=== PATIENT | male | born 1965 | race Caucasian/White ===

== ENCOUNTER 2018-11-11 11:00 | Inpatient (IN) | payer OTHER ==
[2018-11-11 11:09] VITALS: BMI 18.3
--- NOTE | 2018-11-11 13:09 | HP ---
CIWA Score Nausea/Vomitin-No Nausea/No Vomiting Muscle Tremors: 2 Anxiety: 3 Agitation: 1-Slight > Activity Paroxysmal Sweats: 2 Orientation: 2-Disoriented Date<2 days Tacttile Disturbances: 1-Very Mild Itch/Numbness Auditory Disturbances: 0-None Visual Disturbances: 0-None Headache: 1-Very Mild CIWA-Ar Total Score: 12 - Admission Criteria OAS Guidelines: Admission for Medically Managed Detox: Requires at least one of the followin. CIWA greater than 12 2. Seizures within the past 24 hours 3. Delirium tremens within the past 24 hours 4. Hallucinations within the past 24 hours 5. Acute intervention needed for co occurring medical disorder 6. Acute intervention needed for co occurring psychiatric disorder 7. Severe withdrawal that cannot be handled at a lower level of care (continued vomiting, continued diarrhea, abnormal vital signs) requiring intravenous medication and/or fluids 8. Patient presents the following: CIWA greater than 12 Admission Criteria Met: Admission criteria met Admission [facility] Chief Complaint: " alcohol detox" Allergies/Adverse Reactions: Allergies Allergy/AdvReac Type Severity Reaction Status Date / Time No Known Allergies Allergy Verified 11/11/18 11:43 History of Present Illness: 53 yo male with hx of nicotine, alcohol and cocaine dependence is here seeking detox, reports mandated by parole. Last detox [facility] approx 45 days ago. PMHX : GERD, HIV+, [place] b/l, blind (r). Denies suicidal / homicidal ideation or hx of suicide attempt. Denies hx of seizures or blackouts. Exam Limitations: Other ([place]) - Ebola screening Have you traveled outside of the country in the last 21 days: No Have you had contact with anyone from an Ebola affected area: No Have you been sick,other than usual withdrawal symptoms: No - Review of Systems Constitutional: Chills, Changes in sleep, Weakness (fatigue), Unintentional Wgt. Loss (2 -3 lb) EENT: reports: Hearing Loss (b/l), Other (blind right eye) Respiratory: reports: SOB with Exertion Cardiac: reports: No Symptoms Reported GI: reports: Constipated (last BM yesterday), Poor Fluid Intake, Indigestion : reports: Other (hesitancy) Musculoskeletal: reports: Muscle Weakness Integumentary: reports: Other (abcess on the left middle finger) Neuro: reports: See HPI, Weakness Endocrine: reports: Increased Thirst Hematology: reports: See HPI Psychiatric: reports: Orientated x3, Anxious Other Systems: Reviewed and Negative Patient History - Patient Medical History Hx Anemia: No Hx Asthma: No Hx Chronic Obstructive Pulmonary Disease (COPD): No Hx Cancer: No Hx Cardiac Disorders: No Hx Congestive Heart Failure: No Hx Hypertension: No Hx Hypercholesterolemia: No Hx Pacemaker: No HX Cerebrovascular Accident: No Hx Seizures: No Hx Dementia: No Hx Diabetes: No Hx Gastrointestinal Disorders: Yes (acid reflux) Hx Liver Disease: Yes (Hep A positive ag) Hx Genitourinary Disorders: No Hx Sexually Transmitted Disorders: No Hx Renal Disease (ESRD): No Hx Thyroid Disease: No Hx Human Immunodeficiency Virus (HIV): Yes (needs medications names : from [facility] , ) Hx Hepatitis C: No Hx Depression: Yes Hx Suicide Attempt: No Hx Bipolar Disorder: No Hx Schizophrenia: No - Patient Surgical History Past Surgical History: No Hx Neurologic Surgery: No Hx Cataract Extraction: No Hx Cardiac Surgery: No Hx Lung Surgery: No Hx Breast Surgery: No Hx Breast Biopsy: No Hx Abdominal Surgery: No Hx Appendectomy: No Hx Cholecystectomy: No Hx Genitourinary Surgery: No Hx Section: No Hx Orthopedic Surgery: No Anesthesia Reaction: No - PPD History Previous Implant?: Yes Documented Results: Negative w/proof Implanted On Prior [facility] Admission?: Yes Date: 04/30/14 Results: 0 mm PPD to be Administered?: Yes - Smoking Cessation Smoking history: Current every day smoker Have you smoked in the past 12 months: Yes Aproximately how many cigarettes per day: 3 Hx Chewing Tobacco Use: No Initiated information on smoking cessation: Yes 'Breaking Loose' booklet given: 11/11/18 - Substance & Tx. History Hx Alcohol Use: Yes Hx Substance Use: Yes Substance Use Type: Alcohol, Cocaine Hx Substance Use Treatment: Yes (Detox [facility] approx 45 days ago ) - Substances Abused Heroin Route: Inhalation Frequency: Daily Amount used: 2-3 bags Age of first use: 49 Date of Last Use: 11/08/18 Cocaine Route: Inhalation Frequency: Daily Amount used: $30 Age of first use: 37 Date of Last Use: 11/10/18 Alcohol-beer Route: Oral Frequency: Daily Amount used: 1-6 pk. Age of first use: 31 Date of Last Use: 11/10/18 Family Disease History - Family Disease History Family History: Denies Admission Physical Exam BHS - Vital Signs Vital Signs: Vital Signs - 24 hr 11/11/18 11:04 Temperature 98 F Pulse Rate 98 H Respiratory 17 Rate Blood Pressure 121/78 - Physical General Appearance: Yes: Appropriately Dressed, Thin, Sweating, Anxious HEENTM: Yes: Normocephalic, Normal Voice, Pharynx Normal, Tm's normal, Other ( right corneal haze, dry mucous membranes) Respiratory: Yes: Within Normal Limits Neck: Yes: Within Normal Limits Breast: Yes: Breast Exam Deferred Cardiology: Yes: Regular Rhythm, Regular Rate Abdominal: Yes: Normal Bowel Sounds, Non Tender, Flat, Soft, Other (+ flactulance) Genitourinary: Yes: Within Normal Limits Back: Yes: Normal Inspection Musculoskeletal: Yes: full range of Motion, Gait Steady, Pelvis Stable Extremities: Yes: Normal Capillary Refill, Normal Inspection, Normal Range of Motion, Non-Tender Neurological: Yes: manager shipping II-XII NML intact, Fully Oriented, Alert, Motor Strength 5/5, Normal Mood/Affect, Depressed Affect Integumentary: Yes: Normal Color, Dry, Warm, Other (left middle finger abcess) Lymphatic: Yes: Within Normal Limits - Diagnostic (1) [place] (hard of hearing) Current Visit: Yes Status: Chronic Qualifiers: Hearing loss type: unspecified Laterality: bilateral Qualified Code(s): H91.93 - Unspecified hearing loss, bilateral (2) BPH (benign prostatic hyperplasia) Current Visit: Yes Status: Chronic Qualifiers: Lower urinary tract symptom presence: unspecified whether lower urinary tract symptoms present Qualified Code(s): N40.0 - Benign prostatic hyperplasia without lower urinary tract symptoms (3) Cocaine dependence Current Visit: Yes Status: Acute Qualifiers: Substance use status: uncomplicated Qualified Code(s): F14.20 - Cocaine dependence, uncomplicated (4) Opioid dependence Current Visit: Yes Status: Acute Qualifiers: Substance use status: uncomplicated Qualified Code(s): F11.20 - Opioid dependence, uncomplicated (5) Blindness of right eye Current Visit: Yes Status: Chronic (6) Cachexia Current Visit: Yes Status: Chronic (7) Cataract, right eye Current Visit: Yes Status: Chronic (8) Human immunodeficiency virus (HIV) infection Current Visit: Yes Status: Chronic Qualifiers: HIV symptom status: unspecified Qualified Code(s): B20 - Human immunodeficiency virus [HIV] disease (9) Nicotine dependence Current Visit: Yes Status: Chronic Qualifiers: Nicotine product type: cigarettes Cleared for Admission [facility] - Detox or Rehab [facility] Level of Care: Medically Managed Detox Regimen/Protocol: Librium S Breath Alcohol Content Breath Alcohol Content: 0 Urine Drug Screen - Results Drug Screen Negative: Yes Urine Drug Screen Results: JUANA-Cocaine Inpatient Rehab Admission - Rehab Decision to Admit Inpatient rehab admission?: No
[2018-11-11] MEDS ORDERED: ACETAMINOPHEN 325 MG TABLET (FP) PO PRN (13:27)
[2018-11-11] MEDS ORDERED: P-EPHED 60MG/TRIPROLIDI 2.5MG TABLET PO PRN (13:33)
[2018-11-11] MEDS ORDERED: MENTHOL/PHENOL 1 EACH UD MM PRN (13:33)
[2018-11-11] MEDS ORDERED: NICOTINE POLACRILEX 2 MG GUM BUC PRN (13:33)
[2018-11-11] MEDS ORDERED: IBUPROFEN 400 MG TABLET (FP) PO PRN (13:33)
[2018-11-11] MEDS ORDERED: MAGNESIUM HYDROX 2400MG/30ML ORAL SUSPENSION 30 ML CUP PO PRN (13:33)
[2018-11-11] MEDS ORDERED: guaiFENesin/D-METHORPHAN HB 10 ML UNIT-DOSE CUPS PO PRN (13:33)
[2018-11-11] MEDS ORDERED: MAGNESIUM CITRATE 300 ML BOTTLE PO PRN (13:33)
[2018-11-11] MEDS ORDERED: MAG HYDROX/AL HYDROX/SIMETH 30 ML UNIT-DOSE CUP PO PRN (13:33)
[2018-11-11] MEDS ORDERED: LOPERAMIDE HCL 2 MG CAPSULE PO PRN (13:33)
[2018-11-11] MEDS ORDERED: chlordiazePOXIDE HCL 25 MG CAPSULE PO PRN (13:33)
[2018-11-11] MEDS ORDERED: hydrOXYzine PAMOATE 25 MG CAPSULE (FP) PO PRN (13:33)
[2018-11-11] MEDS: chlordiazePOXIDE HCL 25 MG CAPSULE PO SCH ×2 (17:27→22:23)
[2018-11-11] MEDS ORDERED: MELATONIN 5 MG TABLETS PO PRN (22:00)
[2018-11-11] MEDS: AMOX TR/POT CLAV 875MG/125MG TABLETS (FP) PO SCH (22:23)
[2018-11-11] MEDS: TAMSULOSIN HCL 0.4 MG CAP PO SCH (22:23)
[2018-11-11 23:09] LABS: URINE APPEARANCE CLOUDY; URINE BILIRUBIN NEGATIVE (<2.0 mg/dL); URINE COLOR YELLOW; URINE GLUCOSE (UA) 3+ (NEGATIVE); URINE KETONE NEGATIVE (NEGATIVE); URINE LEUK ESTERASE NEGATIVE (NEGATIVE); URINE NITRITE NEGATIVE (NEGATIVE); URINE PROTEIN NEGATIVE (NEGATIVE); URINE UROBILINOGEN NEGATIVE mg/dL (0.2-1.0)
[2018-11-12] MEDS: chlordiazePOXIDE HCL 25 MG CAPSULE PO SCH ×4 (05:19→22:17)
[2018-11-12] MEDS ORDERED: RITONAVIR 100 MG TABLET PO SCH (10:00)
[2018-11-12] MEDS ORDERED: NICOTINE 14 MG/24 HOURS TOPICAL PATCH TD SCH (10:00)
[2018-11-12] MEDS ORDERED: BRIMONIDINE TARTRATE 0.2% OPHTHALMIC 5 ML BOTTLE OS SCH (10:00)
[2018-11-12] MEDS ORDERED: DARUNAVIR ETHANOLATE 800 MG TAB PO SCH (10:00)
[2018-11-12] MEDS ORDERED: CYANOCOBALAMIN (VITAMIN B-12) 100 MCG TABLET PO SCH (10:00)
[2018-11-12] MEDS ORDERED: PRENATAL VITAMINS W/ FOLIC ACID TABLET (FP) PO SCH (10:00)
[2018-11-12] MEDS ORDERED: SULFAMETHOXAZOLE/TRIMETHOPRIM 800MG/160MG D.S. TABLET PO SCH (10:00)
[2018-11-12] MEDS: AMOX TR/POT CLAV 875MG/125MG TABLETS (FP) PO SCH ×2 (10:20→22:17)
[2018-11-12 11:26] LABS: HEMATOCRIT 38.7 % (35.4-49); MCH 32.3 pg (25.7-33.7); MCHC 33.6 g/dl (32.0-35.9); MEAN CELL VOLUME 96.2 fl (80-96); MEAN PLT VOLUME 8.5 fl (7.5-11.1); PLATELET COUNT 270 K/MM3 (134-434); RBC 4.02 M/mm3 (4.00-5.60); WHITE BLOOD COUNT 4.5 K/mm3 (4.0-10.0)
[2018-11-12 12:19] LABS: ALBUMIN 3.9 g/dl (3.4-5.0); ALK PHOS 78 U/L (45-117); ANION GAP 6 MMOL/L (8-16); BILIRUBIN,TOTAL 0.4 mg/dL (0.2-1); BLOOD UREA NITROGEN 12 mg/dL (7-18); CALCIUM 8.8 mg/dL (8.5-10.1); CHLORIDE 107 mmol/L (98-107); CO2 25 mmol/L (21-32); CREATININE 0.9 mg/dL (0.55-1.3); GLUCOSE,RANDOM 146 mg/dL (74-106); POTASSIUM 4.4 mmol/L (3.5-5.1); SGOT/AST 29 U/L (15-37); SGPT/ALT 33 U/L (13-61); SODIUM 138 mmol/L (136-145); TOT PROT 7.3 g/dl (6.4-8.2)
--- NOTE | 2018-11-12 12:42 | EKG ---
Test Reason : Blood Pressure : / mmHG Vent. Rate : 080 BPM Atrial Rate : 080 BPM P-R Int : 138 ms QRS Dur : 090 ms QT Int : 368 ms P-R-T Axes : 087 089 082 degrees QTc Int : 424 ms NORMAL SINUS RHYTHM NORMAL ECG NO PREVIOUS ECGS AVAILABLE Confirmed by MARISSA GUERRERO, ELENA ([id number]) on 11/12/2018 12:42:42 PM Referred By: DR BEE Confirmed By:ELENA ANN MD
--- NOTE | 2018-11-12 17:55 | PN ---
S CIWA - CIWA Score Nausea/Vomitin-No Nausea/No Vomiting Muscle Tremors: 3 Anxiety: 3 Agitation: 1-Slight > Activity Paroxysmal Sweats: 3 Orientation: 0-Oriented Tacttile Disturbances: 2-Mild Itch/Numbness/Burn Auditory Disturbances: 0-None Visual Disturbances: 0-None Headache: 0-None Present CIWA-Ar Total Score: 12 BHS Progress Note (SOAP) Subjective: Anxious, Tremors, Sweating. Objective: PATIENT A & O X 3, OBSERVED AMBULATING ON UNIT. IN NO ACUTE DISTRESS. ABSCESS ON MIDDLE FINGER OF RIGHT HAND NOTED. NO DISCHARGE NOTED FROM ABSCESS. 11/12/18 17:55 Vital Signs Temperature 98.3 F 11/12/18 17:48 Pulse Rate 105 H 11/12/18 17:48 Respiratory Rate 18 11/12/18 17:48 Blood Pressure 112/71 11/12/18 17:48 O2 Sat by Pulse Oximetry (%) Laboratory Tests 11/11/18 11/12/18 11/12/18 18:49 06:00 06:00 WBC 4.5 RBC 4.02 Hgb 13.0 Hct 38.7 MCV 96.2 H MCH 32.3 MCHC 33.6 RDW 13.0 Plt Count 270 MPV 8.5 Sodium 138 Potassium 4.4 Chloride 107 Carbon Dioxide 25 Anion Gap 6 L BUN 12 Creatinine 0.9 Creat Clearance w eGFR > 60 Random Glucose 146 H Calcium 8.8 Total Bilirubin 0.4 AST 29 ALT 33 Alkaline Phosphatase 78 Total Protein 7.3 Albumin 3.9 Urine Color Yellow Urine Appearance Cloudy Urine pH 7.0 Ur Specific [place] 1.022 Urine Protein Negative Urine Glucose (UA) 3+ H Urine Ketones Negative Urine Blood Negative Urine Nitrite Negative Urine Bilirubin Negative Urine Urobilinogen Negative Ur Leukocyte Esterase Negative RPR Titer 11/12/18 06:00 WBC RBC Hgb Hct MCV MCH MCHC RDW Plt Count MPV Sodium Potassium Chloride Carbon Dioxide Anion Gap BUN Creatinine Creat Clearance w eGFR Random Glucose Calcium Total Bilirubin AST ALT Alkaline Phosphatase Total Protein Albumin Urine Color Urine Appearance Urine pH Ur Specific [place] Urine Protein Urine Glucose (UA) Urine Ketones Urine Blood Urine Nitrite Urine Bilirubin Urine Urobilinogen Ur Leukocyte Esterase RPR Titer Nonreactive LABS NOTED. 11/12/18 17:59 Assessment: 11/12/18 17:56 WITHDRAWAL SYMPTOMS. HYPERGLYCEMIA. GLUCOSURIA. 11/12/18 17:57 Plan: CONTINUE DETOX. INCREASE DAILY PO FLUID INTAKE. BGM ACBK FOR ELEVATED ADMISSION GLUCOSE AND FOR ELEVATED ADMISSION UA LEVELS.
[2018-11-12] MEDS: TAMSULOSIN HCL 0.4 MG CAP PO SCH (22:18)
[2018-11-13 06:21] VITALS: BP 120/78; PULSE 99; TEMP 97.1
[2018-11-13] MEDS: chlordiazePOXIDE HCL 25 MG CAPSULE PO SCH (06:30)
--- NOTE | 2018-11-13 09:34 | PN ---
[facility] Progress Note Note: AT TIME OF ARRIVAL OF VRT MECHANIC ON DETOX UNIT. PATIENT APPEARED AGITATED AND WAS OBSERVED BEING VERBALLY ABUSIVE AND THREATENING TO DETOX UNIT STAFF. PATIENT VERY SHORTLY LEFT DETOX UNIT AGAINST MEDICAL ADVICE. SEE FOLLOWING [facility] DETOX DISCHARGE SUMMARY. Shay SCHWAB NP
--- NOTE | 2018-11-13 09:36 | DS ---
[facility] Detox Discharge Summary Admission Date: 11/11/18 Discharge Date: 11/13/18 - History Present History: Cocaine Dependence, Opioid Dependence Additional Comments: AT TIME IN WHICH [employer] CONTR[employer] SPECIALIST ARRIVED ON DETOX UNIT, PATIENT APPEARED AGITATED AND WAS HEARD PRESENTING VERBALLY ABUSIVE AND THREATENING LANGUAGE TOWARD DETOX UNIT STAFF. DESPITE EFFORTS BY [employer] SPECIALIST AND BY DETOX UNIT NURSING STAFF TO AMELIORATE SITUATION AND TO ADDRESS PATIENT'S NEEDS/CONCERNS, PATIENT STILL ELECTS TO LEAVE DETOX UNIT AGAINST MEDICAL ADVICE. PATIENT WOULD NOT ALLOW [employer] CONTR[employer] SPECIALIST TO MEDICALLY ASSESS HIM OR SPEAK TO HIM PRIOR TO LEAVING DETOX UNIT, STATING "I JUST WANT TO LEAVE THIS PLACE." ALL HOME MEDICATIONS THAT PATIENT BROUGHT WITH HIM AT TIME OF ADMISSION TO DETOX UNIT, INCLUDING ANTIBIOTIC (AUGMENTIN) FOR ABSCESS OF HAND, RETURNED TO PATIENT AT TIME IN WHICH HE WAS LEAVING DETOX UNIT. Pertinent Past History: History of Hep A, Acid Reflux, History of Depression, Hard of Hearing ([place]), Nicotine Dependence, H.I.V., Glucosuria, Blind In Right Eye, Cachexia, History of B.P.H. - Physical Exam Results Vital Signs: Vital Signs Temperature 97.1 F L 11/13/18 06:20 Pulse Rate 99 H 11/13/18 06:20 Respiratory Rate 18 11/13/18 06:20 Blood Pressure 120/78 11/13/18 06:20 O2 Sat by Pulse Oximetry (%) Pertinent Admission Physical Exam Findings: WITHDRAWAL SYMPTOMS. Laboratory Tests 11/11/18 11/12/18 11/12/18 18:49 06:00 06:00 WBC 4.5 RBC 4.02 Hgb 13.0 Hct 38.7 MCV 96.2 H MCH 32.3 MCHC 33.6 RDW 13.0 Plt Count 270 MPV 8.5 Sodium 138 Potassium 4.4 Chloride 107 Carbon Dioxide 25 Anion Gap 6 L BUN 12 Creatinine 0.9 Creat Clearance w eGFR > 60 POC Glucometer Random Glucose 146 H Calcium 8.8 Total Bilirubin 0.4 AST 29 ALT 33 Alkaline Phosphatase 78 Total Protein 7.3 Albumin 3.9 Urine Color Yellow Urine Appearance Cloudy Urine pH 7.0 Ur Specific [place] 1.022 Urine Protein Negative Urine Glucose (UA) 3+ H Urine Ketones Negative Urine Blood Negative Urine Nitrite Negative Urine Bilirubin Negative Urine Urobilinogen Negative Ur Leukocyte Esterase Negative RPR Titer 11/12/18 11/13/18 06:00 06:26 WBC RBC Hgb Hct MCV MCH MCHC RDW Plt Count MPV Sodium Potassium Chloride Carbon Dioxide Anion Gap BUN Creatinine Creat Clearance w eGFR POC Glucometer 103 Random Glucose Calcium Total Bilirubin AST ALT Alkaline Phosphatase Total Protein Albumin Urine Color Urine Appearance Urine pH Ur Specific [place] Urine Protein Urine Glucose (UA) Urine Ketones Urine Blood Urine Nitrite Urine Bilirubin Urine Urobilinogen Ur Leukocyte Esterase RPR Titer Nonreactive LABS NOTED. - Treatment Hospital Course: Detoxed Safely - Medication Discharge Medications: Ambulatory Orders Acetaminophen [Tylenol -] 650 mg PO Q8H PRN 11/11/18 Amox-Tr/K Cl [Augmentin - 875Mg Tablet] 1 tab PO BID 11/11/18 Brimonidine Tartrate [Alphagan 0.2% -] 1 drop OP DAILY 11/11/18 Cyanocobalamin [Vitamin B12 -] 100 mcg PO DAILY 11/11/18 Darunavir Ethanolate [Prezista -] 800 mg PO DAILY 11/11/18 Ritonavir [Norvir -] 100 mg PO DAILY 11/11/18 Sulfamethoxazole/Trimethoprim [Bactrim Ds -] 1 tab PO DAILY 11/11/18 Tamsulosin HCl [Flomax] 0.4 mg PO HS 11/11/18 - Diagnosis (1) Cocaine dependence Current Visit: Yes Status: Acute Qualifiers: Substance use status: uncomplicated Qualified Code(s): F14.20 - Cocaine dependence, uncomplicated (2) Opioid dependence Current Visit: Yes Status: Acute Qualifiers: Substance use status: uncomplicated Qualified Code(s): F11.20 - Opioid dependence, uncomplicated (3) BPH (benign prostatic hyperplasia) Current Visit: Yes Status: Chronic Qualifiers: Lower urinary tract symptom presence: unspecified whether lower urinary tract symptoms present Qualified Code(s): N40.0 - Benign prostatic hyperplasia without lower urinary tract symptoms (4) Blindness of right eye Current Visit: Yes Status: Chronic (5) Cachexia Current Visit: Yes Status: Chronic (6) Cataract, right eye Current Visit: Yes Status: Chronic Qualifiers: Cataract type: unspecified Qualified Code(s): H26.9 - Unspecified cataract (7) [place] (hard of hearing) Current Visit: Yes Status: Chronic Qualifiers: Hearing loss type: unspecified Laterality: bilateral Qualified Code(s): H91.93 - Unspecified hearing loss, bilateral (8) Human immunodeficiency virus (HIV) infection Current Visit: Yes Status: Chronic Qualifiers: HIV symptom status: unspecified Qualified Code(s): B20 - Human immunodeficiency virus [HIV] disease (9) Nicotine dependence Current Visit: Yes Status: Chronic Qualifiers: Nicotine product type: cigarettes Substance use status: uncomplicated Qualified Code(s): F17.210 - Nicotine dependence, cigarettes, uncomplicated - AMA Did Patient Leave Against Medical Advice: Yes (PATIENT DID NOT WISH TO REMAIN TO COMPLETE DETOX REGIMEN.)
[2018-11-13] MEDS ORDERED: chlordiazePOXIDE 5 MG CAPSULE PO SCH (17:00)
[2018-11-14] MEDS ORDERED: chlordiazePOXIDE HCL 10 MG CAPSULE PO SCH (17:00)
== END 2018-11-13 08:51 | disposition left against medical advice (07) | DRG 770 ==
LOC: YASAS 11:00 → Y3N 14:18
PROVIDERS: ADMIT Surgery; ATTEND Surgery
PROC: HZ2ZZZZ Detoxification Services for Substance Abuse Treatment (ICD-10-PCS; principal; 2018-11-11)
DX: F11.23 Opioid dependence with withdrawal (principal); F14.20 Cocaine dependence, uncomplicated; F17.210 Nicotine dependence, cigarettes, uncomplicated; Z21 Asymptomatic human immunodeficiency virus [HIV] infection status; N40.0 Benign prostatic hyperplasia without lower urinary tract symptoms; R64 Cachexia; H54.40 Blindness, one eye, unspecified eye; H26.9 Unspecified cataract; H91.93 Unspecified hearing loss, bilateral; R73.9 Hyperglycemia, unspecified; R81 Glycosuria; K21.9 Gastro-esophageal reflux disease without esophagitis
CPT/HCPCS: 36415; 80053; 81003; 82962; 85027; 86593; 93005; 93010

== ENCOUNTER 2020-04-02 16:46 | Inpatient (IN) | payer OTHER ==
[2020-04-02 18:20] VITALS: BMI 23.3
--- NOTE | 2020-04-02 19:05 | HP ---
COWS - Scale Resting Pulse: 0= [place] 80 or Below Sweatin= No chills or Flushing Restless Observation: 0= Sits Still Pupil Size: 0= Normal to Room Light Bone or Joint Aches: 0= None Runny Nose/ Eye Tearin= None GI Upset > 30mins: 0= None Tremor Observation: 0= None Yawning Observation: 0= None Anxiety or Irritability: 0= None Goose Flesh Skin: 0=Smooth Skin COWS Score: 0 CIWA Score - Admission Criteria OASAS Guidelines: Admission for Medically Managed Detox: Requires at least one of the followin. CIWA greater than 12 2. Seizures within the past 24 hours 3. Delirium tremens within the past 24 hours 4. Hallucinations within the past 24 hours 5. Acute intervention needed for co occurring medical disorder 6. Acute intervention needed for co occurring psychiatric disorder 7. Severe withdrawal that cannot be handled at a lower level of care (continued vomiting, continued diarrhea, abnormal vital signs) requiring intravenous medication and/or fluids 8. Admitting History and Physical - Past Medical History Psych: Yes: Anxiety, Depression (Taking risperidone 4mg daily, Zoloft 10[facility] daily from [facility] the [place]) - Smoking History Smoking history: Current every day smoker Have you smoked in the past 12 months: Yes Aproximately how many cigarettes per day: 3 - Alcohol/Substance Use Hx Alcohol Use: Yes Admission [facility] Allergies/Adverse Reactions: Allergies Allergy/AdvReac Type Severity Reaction Status Date / Time No Known Allergies Allergy Verified 11/11/18 11:43 Exam Limitations: No Limitations - Review of Systems Constitutional: No Symptoms Reported EENT: reports: No Symptoms Reported, Difficulty Swallowing, Other (right eye blindness, RECEIVING TREATMENT FOR GLAUCOMA.) Respiratory: reports: No Symptoms reported Cardiac: reports: No Symptoms Reported GI: reports: No Symptoms Reported : reports: No Symptoms Reported, Other (BPH) Musculoskeletal: reports: No Symptoms Reported Integumentary: reports: No Symptoms Reported Neuro: reports: No Symptoms reported Endocrine: reports: No Symptoms Reported Hematology: reports: No Symptoms Reported Psychiatric: reports: No Sypmtoms Reported Other Systems: Reviewed and Negative Patient History - Patient Medical History Hx Anemia: No Hx Asthma: No Hx Chronic Obstructive Pulmonary Disease (COPD): No Hx Cancer: No Hx Cardiac Disorders: No Hx Congestive Heart Failure: No Hx Hypercholesterolemia: No Hx Pacemaker: No HX Cerebrovascular Accident: No Hx Seizures: No Hx Dementia: No Hx Diabetes: No Hx Gastrointestinal Disorders: Yes (acid reflux) Hx Liver Disease: Yes (Hep A positive ag) Hx Genitourinary Disorders: No Hx Sexually Transmitted Disorders: No Hx Renal Disease (ESRD): No Hx Thyroid Disease: No Hx Human Immunodeficiency Virus (HIV): Yes (needs medications names : from [facility] , ) Hx Hepatitis C: No Hx Depression: Yes (taking risperidone 4mg daily and zoloft 10mg daily) Hx Suicide Attempt: No Hx Bipolar Disorder: No Hx Schizophrenia: No - Patient Surgical History Past Surgical History: Yes Hx Neurologic Surgery: No Hx Cataract Extraction: No Hx Cardiac Surgery: No Hx Lung Surgery: No Hx Breast Surgery: No Hx Breast Biopsy: No Hx Abdominal Surgery: No Hx Appendectomy: No Hx Cholecystectomy: No Hx Genitourinary Surgery: No Hx Section: No Hx Orthopedic Surgery: No Other Surgical History: SURGERY FOLLOWING RETINAL DETACHMENT Anesthesia Reaction: No - PPD History Documented Results: Negative w/proof Date: 11/13/18 (repeat today) Results: 0 mm PPD to be Administered?: Yes - Smoking Cessation Smoking history: Current every day smoker Have you smoked in the past 12 months: Yes Aproximately how many cigarettes per day: 3 Hx Chewing Tobacco Use: No Initiated information on smoking cessation: Yes 'Breaking Loose' booklet given: 04/01/20 - Substance & Tx. History Hx Alcohol Use: No Hx Substance Use: Yes (chela) Substance Use Type: Heroin (takes 3 bags/ day, first dose was this year, last dose today-afternoon) - Substances abused Heroin Substance route: Injection Amount used: 3 BAGS/DAY Age of first use: 54 Admission Physical Exam BHS - Vital Signs Vital Signs: Vital Signs - 24 hr 04/02/20 16:46 Temperature 97.4 F L Pulse Rate 68 Respiratory 16 Rate Blood Pressure 129/78 - Physical General Appearance: Yes: Within Normal Limits. No: Nourished (very thin and cachectic) HEENTM: Yes: Within Normal Limits, Hearing grossly Normal, Normocephalic, Normal Voice, Other (Rt eye corneal clouding.) Respiratory: Yes: Within Normal Limits, Chest Non-Tender, Lungs Clear, Normal Breath Sounds Neck: Yes: Within Normal Limits, No masses,lesions,Nodules, Trachea in good position Cardiology: Yes: Within Normal Limits, Regular Rhythm, Regular Rate, S1, S2 Abdominal: Yes: Within Normal Limits, Normal Bowel Sounds, Non Tender, Flat, Soft Genitourinary: Yes: Within Normal Limits, Other (BPH) Breathalyzer - Breathalyzer Breathalyzer: 0 Urine Drug Screen - Test Device Lot number: [id number] Expiration date: 05/28/21 - Control Is test valid?: Yes - Results Drug screen NEGATIVE: No Urine drug screen results: THC-Marijuana, FEN-Fentanyl, MOP-Opiates Inpatient Rehab Admission - Rehab Decision to Admit Inpatient rehab admission?: No
[2020-04-02] MEDS ORDERED: ACETAMINOPHEN 325 MG TABLET (FP) PO PRN ×2 (19:28)
[2020-04-02] MEDS ORDERED: IBUPROFEN 400 MG TABLET (FP) PO PRN (19:28)
[2020-04-02] MEDS ORDERED: METHOCARBAMOL 500 MG TABLET PO PRN (19:28)
[2020-04-02] MEDS ORDERED: MAGNESIUM CITRATE 300 ML BOTTLE PO PRN (19:28)
[2020-04-02] MEDS ORDERED: MENTHOL/PHENOL 1 EACH UD MM PRN (19:28)
[2020-04-02] MEDS ORDERED: ONDANSETRON *ODT* 4 MG TABLET SL ONE (19:28)
[2020-04-02] MEDS ORDERED: MAGNESIUM HYDROX 2400MG/30ML ORAL SUSPENSION 30 ML CUP PO PRN (19:28)
[2020-04-02] MEDS ORDERED: BISMUTH SUBSALICYLATE 524 MG/30 ML UD PO PRN (19:28)
[2020-04-02] MEDS ORDERED: NICOTINE POLACRILEX 2 MG GUM BUC PRN (19:28)
[2020-04-02] MEDS ORDERED: MAG HYDROX/AL HYDROX/SIMETH 30 ML UNIT-DOSE CUP PO PRN (19:28)
[2020-04-02] MEDS ORDERED: TUBERCULIN PPD 5 TU/0.1ML SYRINGE (IN PATIENT USE ONLY) ID ONE (19:29)
[2020-04-02] MEDS ORDERED: METHADONE HCL 10 MG TABLET (FOR DETOX USE ONLY) PO ONE (19:30)
[2020-04-02] MEDS ORDERED: cloNIDine HCL 0.1 MG TABLET PO PRN (19:30)
--- NOTE | 2020-04-02 21:10 | PN ---
S Progress Note Note: Patient states that he is not HIV+ and is not on HIV meds. Patient declines HIV testing.
[2020-04-02] MEDS ORDERED: BRIMONIDINE TARTRATE 0.2% OPHTHALMIC 5 ML BOTTLE OU SCH (22:00)
[2020-04-02] MEDS: MELATONIN 5 MG TABLETS PO SCH (22:11)
[2020-04-02] MEDS: PRENATAL VITAMINS W/ FOLIC ACID TABLET (FP) PO SCH (22:16)
[2020-04-02] MEDS: THIAMINE HCL 100 MG TABLET (FP) PO SCH (22:16)
[2020-04-02] MEDS: DOCUSATE SODIUM 100 MG CAPSULE (FP) PO SCH (22:16)
[2020-04-02] MEDS: hydrOXYzine PAMOATE 25 MG CAPSULE (FP) PO SCH (22:16)
[2020-04-02] MEDS: TAMSULOSIN HCL 0.4 MG CAP PO SCH (22:16)
[2020-04-02] MEDS: NICOTINE 7 MG/24 HOURS TOPICAL PATCH TD SCH (22:19)
[2020-04-02] MEDS: BRIMONIDINE TARTRATE 0.2% OPHTHALMIC 5 ML BOTTLE OS SCH (23:22)
[2020-04-03] MEDS: BRIMONIDINE TARTRATE 0.2% OPHTHALMIC 5 ML BOTTLE OS SCH ×3 (07:15→22:28)
[2020-04-03] MEDS: hydrOXYzine PAMOATE 25 MG CAPSULE (FP) PO SCH ×5 (07:15→22:25)
--- NOTE | 2020-04-03 08:22 | PN ---
Teaching Attending Note Name of Resident: Yesenia Day ATTENDING PHYSICIAN STATEMENT I saw and evaluated the patient. I reviewed the resident's note and discussed the case with the resident. I agree with the resident's findings and plan as documented. SUBJECTIVE: OBJECTIVE: ASSESSMENT AND PLAN:
[2020-04-03] MEDS ORDERED: METHADONE HCL 10 MG TABLET (FOR DETOX USE ONLY) ONE (09:37)
[2020-04-03] MEDS ORDERED: METHADONE HCL 5 MG TABLET (FOR DETOX USE ONLY) ONE (09:38)
[2020-04-03] MEDS ORDERED: TIMOLOL 0.5% OPHTHALMIC SOL 5 ML BOTTLE OD SCH (10:00)
[2020-04-03] MEDS ORDERED: METHADONE (DETOX) 20 MG, METHADONE (DETOX) 5 MG PO ONE (10:00)
[2020-04-03] MEDS: DOCUSATE SODIUM 100 MG CAPSULE (FP) PO SCH ×2 (10:28→22:25)
[2020-04-03] MEDS: PRENATAL VITAMINS W/ FOLIC ACID TABLET (FP) PO SCH (10:29)
[2020-04-03] MEDS: NICOTINE 7 MG/24 HOURS TOPICAL PATCH TD SCH (10:29)
--- NOTE | 2020-04-03 10:52 | PN ---
BHS COWS - Scale Resting Pulse: 0= [place] 80 or Below Sweatin= Chills/Flushing Restless Observation: 0= Sits Still Pupil Size: 1= Pupils >than Normal Bone or Joint Aches: 1= Mild Discomfort Runny Nose/ Eye Tearin= None GI Upset > 30mins: 1= Stomach Cramp Tremor Observation of Outstretched Hands: 1= Tremor [place], Not Seen Yawning Observation: 0= None Anxiety or Irritability: 1=Feels Anxious/Irritable Goose Flesh Skin: 3=Piloerection COWS Score: 9 BHS Progress Note (SOAP) Subjective: 54 years old male admitted on 04/02/20 for opiate withdrawal sx management treating with methadone detox regiment discontinue 10 ml daily eye drop begin trusopt one drop to left eye daily Objective: 04/03/20 10:55 Vital Signs - 24 hr 04/02/20 04/02/20 04/02/20 16:46 19:56 22:42 Temperature 97.4 F L 97.4 F L 97.1 F L Pulse Rate 68 68 57 L Respiratory 16 16 16 Rate Blood Pressure 129/78 129/78 147/85 O2 Sat by Pulse 97 Oximetry (%) 04/03/20 08:39 Temperature 97.5 F L Pulse Rate 64 Respiratory 16 Rate Blood Pressure 105/60 O2 Sat by Pulse Oximetry (%) 04/03/20 10:56 admission lab had been cancelled reorder admission lab Assessment: 04/03/20 10:57 opiate withdrawal Plan: methadone regiment
--- NOTE | 2020-04-03 11:21 | PN ---
BHS Progress Note Note: Psychiatric nurse practitioner note: Platform Operations Director approached patient for psychiatric consultation. Patient refused to be seen. Stated to designer writer," no, no i don't need to see you."
--- NOTE | 2020-04-03 12:13 | EKG ---
Test Reason : Blood Pressure : / mmHG Vent. Rate : 052 BPM Atrial Rate : 052 BPM P-R Int : 130 ms QRS Dur : 096 ms QT Int : 412 ms P-R-T Axes : 077 089 077 degrees QTc Int : 383 ms SINUS BRADYCARDIA OTHERWISE NORMAL ECG WHEN COMPARED WITH ECG OF 11-NOV-2018 16:32, VENT. RATE HAS DECREASED BY 28 BPM Confirmed by MD Hal, Bob ([id number]) on 04/03/2020 12:12:33 PM Referred By: Confirmed By:Bob Hong MD
[2020-04-03] MEDS: DORZOLAMIDE 2% HCL OPHTHALMIC SOLUTION 10 ML BOTTLE OS SCH ×2 (13:06→22:28)
[2020-04-03] MEDS: TIMOLOL 0.5% OPHTHALMIC SOL 5 ML BOTTLE OS SCH (15:34)
--- NOTE | 2020-04-03 17:11 | CONSULT ---
[facility] Psychiatric Consult - Data Date of interview: 04/03/20 Admission source: [facility] Identifying data: Revisit to [facility] and admission to [address] [place] [address] for this 54 y/o male self-referred for detoxification treatment. PATRICK issues : heroin, nicotine. Patient is single, a father of one (29 year-old daughter), domiciled (lives alone), unemployed and supported on SSI benefits. Patient has a hearing impediment (congenital) and this interview is conducted via written questions on a clipboard (magnifying glass is used by the patient for reading the information). Mr Solis reveals himself as a good, clear and reliable historian. Substance Abuse History: Discussed with the patient. PATRICK profile as follows : Smoking history: Current every day smoker. Have you smoked in the past 12 months: Yes. Aproximately how many cigarettes per day: 3. Hx Chewing Tobacco Use: No. Initiated information on smoking cessation: Yes. 'Breaking Loose' booklet given: 04/01/20. - Substance & Tx. History. Hx Alcohol Use: No. Hx Substance Use: Yes (heroin). Substance Use Type: Heroin (takes 3 bags/ day, first dose was this year, last dose today-afternoon). - Substances abused. Heroin. Substance route: Injection. Amount used: 3 BAGS/DAY. Age of first use: 54 Medical History: Medical history is remarkable for benign prostatic hyperplasia, hepatitis A, congenital deafness, glaucoma, blindness in right eye (remote history of retinal detachment from traumatic etiology), GERD and HIV infection (followed at the [facility]). Psychiatric History: Patient denies history of psychiatric hospitalizations. Mr Solis reports current psychiatric OPD services at the [facility] mental health clinic. He has been diagnosed with MDD since 1999 and his maintenance medications consist of risperdal + sertraline (doses not recalled by patient). Patient denies history of suicide attempts. Physical/Sexual Abuse/Trauma History: Patient denies history of abuse. Additional Comment: Urine drug screen results: THC-Marijuana, FEN-Fentanyl, MOP- Opiates. Noted. Mental Status Exam - Mental Status Exam Alert and Oriented to: Time, Place, Person Cognitive Function: Good Patient Appearance: Well Groomed Mood: Withdrawn, Hopeful Affect: Appropriate, Normal Range Patient Behavior: Fatigued, Appropriate (friendly on approach; communicates well via written materials), Cooperative Speech Pattern: Clear, Appropriate Voice Loudness: Normal Thought Process: Intact, Goal Oriented Thought Disorder: Not Present Hallucinations: Denies Suicidal Ideation: Denies Homicidal Ideation: Denies Insight/Judgement: Fair Sleep: Poorly, Difficulty falling asleep Appetite: Good (observed eating his meals) Gait/Station: Normal Psychiatric Findings - Problem List ([place] 1, 2,3) (1) Opioid dependence Current Visit: Yes Status: Chronic Qualifiers: Substance use status: uncomplicated Qualified Code(s): F11.20 - Opioid d ependence, uncomplicated (2) Nicotine dependence Current Visit: Yes Status: Chronic Qualifiers: Nicotine product type: cigarettes Substance use status: uncomplicated Qualified Code(s): F17.210 - Nicotine dependence, cigarettes, uncomplicated (3) History of depression Current Visit: Yes Status: Chronic - Initial Treatment Plan Initial Treatment Plan: Psychoeducation. Sleep hygiene. Detoxification in progress. Resumed : risperdal 0.5 mg po hs + zoloft 50 mg po daily. Side effects/benefits of both drugs are discussed with the patient (in writing). Mr Solis is in agreement with this plan of care. Informed consent (verbal) is obtained from the patient. Observation.
[2020-04-03] MEDS ORDERED: risperiDONE 1 MG TABLET PO SCH (22:00)
[2020-04-03] MEDS: TAMSULOSIN HCL 0.4 MG CAP PO SCH (22:25)
[2020-04-03] MEDS: MELATONIN 5 MG TABLETS PO SCH (22:26)
[2020-04-03] MEDS: THIAMINE HCL 100 MG TABLET (FP) PO SCH (22:26)
[2020-04-04] MEDS: DORZOLAMIDE 2% HCL OPHTHALMIC SOLUTION 10 ML BOTTLE OS SCH (07:00)
[2020-04-04] MEDS: BRIMONIDINE TARTRATE 0.2% OPHTHALMIC 5 ML BOTTLE OS SCH (07:00)
[2020-04-04] MEDS: hydrOXYzine PAMOATE 25 MG CAPSULE (FP) PO SCH ×2 (07:00→10:30)
[2020-04-04 09:20] VITALS: BP 124/83; PULSE 70; TEMP 97.8
[2020-04-04] MEDS ORDERED: SERTRALINE HCL 50 MG TABLET (FP) PO SCH (10:00)
[2020-04-04] MEDS ORDERED: METHADONE HCL 10 MG TABLET (FOR DETOX USE ONLY) PO ONE (10:00)
[2020-04-04] MEDS: DOCUSATE SODIUM 100 MG CAPSULE (FP) PO SCH (10:28)
[2020-04-04] MEDS: PRENATAL VITAMINS W/ FOLIC ACID TABLET (FP) PO SCH (10:28)
[2020-04-04] MEDS: TIMOLOL 0.5% OPHTHALMIC SOL 5 ML BOTTLE OS SCH (10:29)
[2020-04-04] MEDS: NICOTINE 7 MG/24 HOURS TOPICAL PATCH TD SCH (10:29)
--- NOTE | 2020-04-04 11:11 | DS ---
[facility] Detox Discharge Summary Admission Date: 04/02/20 Discharge Date: 04/04/20 - History Present History: Opioid Dependence Additional Comments: 54 years old male admitted on 04/02/20 for opiate withdrawal sx management treated with methadone detox regiment seen by psychiatrist krista hebert and phillip mr diaz prefers to leave the detox unit today to visit his mother and returns to [facility] for opiate recovery mr diaz states that he has been clean for more than a year and recent mild set back alert oriented x 3 goal oriented direction left eye poor vision hard of hearing on both ears ambulating steady gaits cardiac s1s2 regular rate rhythm respiratory clear lung sounds bilaterally on auscultation extremities full range of motion Pertinent Past History: time for discharge 44 minutes treatment team met with the patient discussing benefits of methadone regiment completion encourage to consider medication assisted treatment program and 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 narcan from pharmacy mr diaz states that he was clean for a long time slip "a little" - Physical Exam Results Vital Signs: Vital Signs Temperature 97.8 F 04/04/20 09:19 Pulse Rate 70 04/04/20 09:19 Respiratory Rate 18 04/04/20 09:19 Blood Pressure 124/83 04/04/20 09:19 O2 Sat by Pulse Oximetry (%) 100 04/03/20 21:03 Pertinent Admission Physical Exam Findings: opiate withdrawal Vital Signs - 24 hr 04/03/20 04/03/20 04/03/20 12:31 16:40 21:03 Temperature 97.3 F L 96.9 F L 98.4 F Pulse Rate 72 66 67 Respiratory 18 16 18 Rate Blood Pressure 130/83 112/74 132/75 O2 Sat by Pulse 100 100 Oximetry (%) 04/04/20 09:19 Temperature 97.8 F Pulse Rate 70 Respiratory 18 Rate Blood Pressure 124/83 O2 Sat by Pulse Oximetry (%) mr diaz has hard of hearing on both ears hesitates admission blood drawn covid pending "my doctor can do it for me" - Treatment Hospital Course: Detox Protocol Followed, Detoxed Safely, Responded well, Discharged Condition Good, Rehab Referral Accepted Patient has Accepted a Rehab Referral to: [facility] - Medication Discharge Medications: Ambulatory Orders Brimonidine Tartrate [Alphagan 0.2% -] 1 drop OP DAILY 11/11/18 Tamsulosin HCl [Flomax] 0.4 mg PO HS 11/11/18 Brimonidine Tartrate [Alphagan 0.2% -] 1 drop AU TID 04/02/20 Docusate Sodium [Colace] 100 mg PO BID 04/02/20 Dorzolamide HCl/Pf [Dorzolamide 2% Eye Drop] 10 ml OP DAILY 04/02/20 Risperidone [Risperdal -] 0.5 mg PO HS 04/02/20 Sertraline HCl [Zoloft -] 50 mg PO DAILY 04/02/20 Timolol 0.5% [Timoptic 0.5%] 1 drop OD DAILY 04/02/20 Naloxone HCl [Narcan] 4 mg NS ASDIR PRN #1 spray 04/04/20 - Diagnosis (1) Substance induced mood disorder Status: Suspected (2) BPH (benign prostatic hyperplasia) Status: Chronic Qualifiers: Lower urinary tract symptom presence: symptoms absent Qualified Code(s): N40.0 - Benign prostatic hyperplasia without lower urinary tract symptoms (3) Blindness of right eye Status: Chronic Qualifiers: Left eye visual impairment category: left - unspecified low vision Qualified Code(s): H54.40 - Blindness, one eye, unspecified eye; H54.50 - Low vision, one eye, unspecified eye (4) HIV disease Status: Chronic (5) ALUTIIQ (hard of hearing) Status: Chronic Qualifiers: Hearing loss type: unspecified Laterality: bilateral Qualified Code(s): H91.93 - Unspecified hearing loss, bilateral (6) Human immunodeficiency virus (HIV) infection Status: Chronic Qualifiers: HIV symptom status: asymptomatic Qualified Code(s): Z21 - Asymptomatic human immunodeficiency virus [HIV] infection status (7) Nicotine dependence Status: Acute Qualifiers: Nicotine product type: cigarettes Substance use status: in withdrawal Qualified Code(s): F17.213 - Nicotine dependence, cigarettes, with withdrawal - AMA Did Patient Leave Against Medical Advice: No COWS (PN) - Opiate Withdrawal Resting Pulse: 0= NM 80 or Below Sweatin= Chills/Flushing Restless Observation: 0= Sits Still Pupil Size: 1= Pupils >than Normal Bone or Joint Aches: 1= Mild Discomfort Runny Nose/ Eye Tearin= None GI Upset > 30mins: 0= None Tremor Observation of Outstretched Hands: 1= Tremor [place], Not Seen Yawning Observation: 0= None Anxiety or Irritability: 1=Feels Anxious/Irritable Goose Flesh Skin: 0=Smooth Skin COWS Score: 5
--- NOTE | 2020-04-04 12:09 | PN ---
S Progress Note Note: Psychiatry Attending's note : Medications verified. [employer] Supervisor spoke to pharmacist. At [phone] ([facility]). Confirmed refills for : Risperdal 0.5 mg po hs Zoloft 50 mg po daily Filled on 03/26/20. Two refills remaining.
[2020-04-04 13:16] LABS: HEMATOCRIT 36.6 % (35.4-49); HEMOGLOBIN 12.2 GM/dL (11.7-16.9); MCH 30.9 pg (25.7-33.7); MCHC 33.2 g/dl (32.0-35.9); MEAN CELL VOLUME 93.2 fl (80-96); MEAN PLT VOLUME 8.1 fl (7.5-11.1); PLATELET COUNT 250 K/MM3 (134-434); RBC 3.93 M/mm3 (4.00-5.60); WHITE BLOOD COUNT 4.3 K/mm3 (4.0-10.0)
[2020-04-04 13:24] LABS: ALBUMIN 2.8 g/dl (3.4-5.0); BILIRUBIN,TOTAL 0.4 mg/dL (0.2-1); BLOOD UREA NITROGEN 12.5 mg/dL (7-18); CALCIUM 8.5 mg/dL (8.5-10.1); CREATININE 0.9 mg/dL (0.55-1.3)
[2020-04-05] MEDS ORDERED: METHADONE (DETOX) 10 MG, METHADONE (DETOX) 5 MG PO ONE (10:00)
[2020-04-06] MEDS ORDERED: METHADONE HCL 10 MG TABLET (FOR DETOX USE ONLY) PO ONE (10:00)
[2020-04-07] MEDS ORDERED: METHADONE HCL 5 MG TABLET (FOR DETOX USE ONLY) PO ONE (06:00)
== END 2020-04-04 12:01 | disposition home or self-care (01) | DRG 773 ==
LOC: YASAS 16:46 → Y3N 21:07
PROVIDERS: ADMIT Allergy & Immunology; ATTEND Allergy & Immunology
PROC: HZ2ZZZZ Detoxification Services for Substance Abuse Treatment (ICD-10-PCS; principal; 2020-04-02)
DX: F11.23 Opioid dependence with withdrawal (principal); F17.210 Nicotine dependence, cigarettes, uncomplicated; F19.24 Other psychoactive substance dependence with psychoactive substance-induced mood disorder; F32.9 Major depressive disorder, single episode, unspecified; F41.8 Other specified anxiety disorders; Z21 Asymptomatic human immunodeficiency virus [HIV] infection status; H90.3 Sensorineural hearing loss, bilateral; H54.61 Unqualified visual loss, right eye, normal vision left eye; K21.9 Gastro-esophageal reflux disease without esophagitis; H40.9 Unspecified glaucoma; N40.0 Benign prostatic hyperplasia without lower urinary tract symptoms; Z86.19 Personal history of other infectious and parasitic diseases
CPT/HCPCS: 36415; 80053; 85027; 86780; 93005; 93010; J2794; Q0162; U0003